=== PATIENT | male | born 1960 | race Caucasian/White ===

== ENCOUNTER 2022-10-08 06:55 | Emergency (ER) | payer BC ==
[2022-10-08] MEDS ORDERED: Nitroglycerin 0.4 MG Tab.SL SL ONE (07:00)
[2022-10-08] MEDS ORDERED: Aspirin 81 MG Tab.Chew PO ONE (07:21)
[2022-10-08] MEDS ORDERED: fentaNYL 100 MCG/2 ML SDV IVPUSH PRN (07:32)
[2022-10-08 08:01] LABS: ESTIMATED GFR 93 mL/min (>60)
== END 2022-10-08 11:57 | disposition home or self-care (01) ==
LOC: LB.ED 06:55
DX: R07.9 Chest pain, unspecified (principal)
CPT/HCPCS: 36415; 71045; 80053; 84484; 85025; 85379; 93005; 99285-25; A9270-GY

== ENCOUNTER 2023-01-02 08:05 | Emergency (ER) | payer BC, OTHER ==
[2023-01-02] MEDS: Aspirin 81 MG Tab.Chew PO ONE (08:12)
[2023-01-02] MEDS: Nitroglycerin 0.4 MG Tab.SL SL ONE (08:15)
[2023-01-02] MEDS: Sodium Chloride 0.9% 1,000 ML IV ONE (08:24)
[2023-01-02] MEDS ORDERED: Morphine 4 MG/ML VIAL IVPUSH ONE (09:00)
[2023-01-02] MEDS: LORazepam 2 MG/ML SDV IVPUSH ONE (09:30)
[2023-01-02] MEDS: LORazepam 2 MG/ML SDV ONE (09:36)
== END 2023-01-02 13:10 | disposition home or self-care (01) ==
LOC: LB.ED 08:05
DX: R07.89 Other chest pain (principal); Z79.82 Long term (current) use of aspirin
CPT/HCPCS: 36415; 71045; 80048; 81003; 83735; 83880; 84100; 84484; 85027; 85379; 96361; 96374; 99285-25; A9270-GY; J2060; J7030

== ENCOUNTER 2024-12-15 08:40 | Day surgery (SDC) | payer OTHER ==
[2024-12-15] MEDS: Metoclopramide 10 MG/2 ML SDV IV PRN (09:29)
[2024-12-15] MEDS: Sodium Chloride 0.9% 1,000 ML IV SCH (09:29)
[2024-12-15] MEDS ORDERED: Propofol 200 MG/20 ML SDV ONE (11:00)
== END 2024-12-15 11:55 | disposition home or self-care (01) ==
LOC: LB.SDS 08:40
PROVIDERS: ATTEND Surgery
DX: Z12.11 Encounter for screening for malignant neoplasm of colon (principal); D12.2 Benign neoplasm of ascending colon; I25.10 Atherosclerotic heart disease of native coronary artery without angina pectoris; Z79.82 Long term (current) use of aspirin; Z79.899 Other long term (current) drug therapy
CPT/HCPCS: 45380; 88305; J2704; J2765; J7030

== ENCOUNTER 2025-04-27 09:37 | Emergency (ER) | payer OTHER ==
[2025-04-27] MEDS ORDERED: Sodium Chloride 0.9% 10 ML Syringe FLUSH PRN (10:12)
[2025-04-27] MEDS: Aspirin 81 MG Tab.Chew PO ONE (10:14)
[2025-04-27 10:22] LABS: HEMATOCRIT 41.2 % (40.0-54.0); HEMOGLOBIN 14.8 g/dL (13.0-18.0); MEAN CORPUSCULAR HEMOGLOBIN 31.4 pg (27.0-32.0); MEAN CORPUSCULAR HGB CONC 35.9 g/dL (31.0-35.0); MEAN PLATELET VOLUME 8.7 fL (6.0-10.0); RED BLOOD CELL COUNT 4.72 M/uL (4.50-6.50); RED CELL DISTRIBUTION WIDTH 12.6 % (11.0-16.0); WHITE BLOOD CELL COUNT,WBC 7.1 K/uL (4.0-11.0)
[2025-04-27] MEDS: Sodium Chloride 0.9% 1,000 ML IV SCH (10:29)
[2025-04-27 11:17] LABS: A/G RATIO 1.3 (0.8-2.0); ALBUMIN 3.9 g/dL (3.4-5.0); ANION GAP 17.2 mmol/L (5.0-15.0); BILIRUBIN TOTAL 0.7 mg/dL (0.0-1.0); CALCIUM 8.5 mg/dL (8.5-10.1); CARBON DIOXIDE,CO2 25.3 mmol/L (21.0-32.0); CREATININE 0.91 mg/dL (0.70-1.30); EST CRCL DRUG DOSING (CG) 84.68 mL/min; MAGNESIUM 2.1 mg/dL (1.8-2.4); POTASSIUM,K 3.5 mmol/L (3.5-5.1); PROTEIN TOTAL,TP 6.8 g/dL (6.4-8.2); TROPONIN I HIGH SENSITIVITY 5.6 pg/ml (<=60.4)
[2025-04-27] MEDS ORDERED: Albuterol/Ipratropium 3.0-0.5 MG/3 ML Neb Soln NEB SCH (12:00)
[2025-04-27] MEDS: Nitroglycerin 0.4 MG Tab.SL SL ONE (15:28)
== END 2025-04-27 15:20 | disposition home or self-care (01) ==
LOC: LB.ED 09:37
DX: R07.89 Other chest pain (principal); I25.10 Atherosclerotic heart disease of native coronary artery without angina pectoris; I10 Essential (primary) hypertension; E78.00 Pure hypercholesterolemia, unspecified; E66.9 Obesity, unspecified; Z79.899 Other long term (current) drug therapy; Z95.1 Presence of aortocoronary bypass graft; Z79.82 Long term (current) use of aspirin
CPT/HCPCS: 36415; 71045; 80053; 83735; 83880; 84484; 85027; 85379; 93005; 93010; 96360; 96361; 99284; 99285-25; A9270-GY; J7030

== ENCOUNTER 2025-05-15 19:38 | Emergency (ER) | payer OTHER ==
[2025-05-15] MEDS: Nitroglycerin 0.4 MG Tab.SL SL PRN (19:48)
[2025-05-15] MEDS ORDERED: Sodium Chloride 0.9% 10 ML Syringe FLUSH PRN (19:48)
[2025-05-15] MEDS: Aspirin 81 MG Tab.Chew PO ONE (19:52)
[2025-05-15] MEDS: Sodium Chloride 0.9% 500 ML IV ONE (19:58)
[2025-05-15 20:00] LABS: BASOPHILS ABSOLUTE AUTO 0.03 K/uL (0.02-0.10); BASOPHILS PERCENT AUTO 0.3 % (0.0-0.5); EOSINOPHILS ABSOLUTE AUTO 0.17 K/uL (0.04-0.40); EOSINOPHILS PERCENT AUTO 1.9 % (1.0-5.0); HEMATOCRIT 45.3 % (40.0-54.0); HEMOGLOBIN 16.3 g/dL (13.0-18.0); LYMPHOCYTES ABSOLUTE AUTO 3.07 K/uL (1.50-4.00); LYMPHOCYTES PERCENT AUTO 34.6 % (20.0-40.0); MEAN CORPUSCULAR HEMOGLOBIN 31.4 pg (27.0-32.0); MEAN CORPUSCULAR VOLUME 87 fL (76-96); MEAN PLATELET VOLUME 8.9 fL (6.0-10.0); MONOCYTES ABSOLUTE AUTO 0.82 K/uL (0.20-0.80); MONOCYTES PERCENT AUTO 9.2 % (3.0-10.0); NEUTROPHILS ABSOLUTE AUTO 4.78 K/uL (2.00-7.50); PLATELET COUNT,PLT 172 K/uL (150-400); RED BLOOD CELL COUNT 5.19 M/uL (4.50-6.50); WHITE BLOOD CELL COUNT,WBC 8.9 K/uL (4.0-11.0)
[2025-05-15] MEDS: Ondansetron 4 MG/2 ML SDV IVPUSH ONE (20:01)
[2025-05-15 20:23] LABS: A/G RATIO 1.3 (0.8-2.0); ALANINE AMINOTRANSFERASE,ALT 53 U/L (12-78); ALBUMIN 4.2 g/dL (3.4-5.0); ALKALINE PHOSPHATASE 138 U/L (46-116); ANION GAP 10.7 mmol/L (5.0-15.0); ASPARTATE AMNIOTRANSFERASE,AST 29 U/L (15-37); BILIRUBIN TOTAL 0.7 mg/dL (0.0-1.0); BLOOD UREA NITROGEN,BUN 21 mg/dL (8-26); BUN/CREATININE RATIO 20.2 (6-25); CALCIUM 8.9 mg/dL (8.5-10.1); CARBON DIOXIDE,CO2 29.3 mmol/L (21.0-32.0); CHLORIDE,CL 103 mmol/L (98-107); CREATININE 1.04 mg/dL (0.70-1.30); ESTIMATED GFR 80 mL/min (>60); GLUCOSE RANDOM 119 mg/dL (74-100); PROTEIN TOTAL,TP 7.5 g/dL (6.4-8.2); SODIUM,NA 139 mmol/L (136-145); TROPONIN I HIGH SENSITIVITY 5.6 pg/ml (<=60.4)
[2025-05-15] MEDS ORDERED: Isosorbide Mononitrate 30 MG Tab.ER ONE (23:00)
[2025-05-15] MEDS ORDERED: Clopidogrel 75 MG Tab ONE (23:00)
[2025-05-15] MEDS ORDERED: amLODIPine 2.5 MG Tab ONE (23:00)
[2025-05-15] MEDS: Clopidogrel 75 MG Tab PO ONE (23:58)
== END 2025-05-16 00:12 | disposition home or self-care (01) ==
LOC: LB.ED 19:38
DX: I25.110 Atherosclerotic heart disease of native coronary artery with unstable angina pectoris (principal); I10 Essential (primary) hypertension; E78.00 Pure hypercholesterolemia, unspecified; M19.90 Unspecified osteoarthritis, unspecified site; Z95.5 Presence of coronary angioplasty implant and graft; Z79.82 Long term (current) use of aspirin; Z79.899 Other long term (current) drug therapy
CPT/HCPCS: 36415; 71045; 80053; 84484; 85025; 93005; 93010; 96374; 99284; 99285-25; A9270-GY; J2405; J7040